=== PATIENT | male | born 1975 | race Caucasian/White ===

== ENCOUNTER 2019-11-27 00:18 | Emergency (ER) | payer OTHER ==
[~2019-11-27] VITALS: Ht 185.4 cm; Wt 113.4 kg
[~2019-11-27 00:18] MED LIST: AUGMENTIN 875 M1 TAB PO; METHADONE10 MG PO; SUBOXONE 8 MG-21 TA1 SL; TRAMADOL HCL50 MG PO; TRIMOX500 MG PO; ZOFRAN4 MG PO
[2019-11-27 00:43] LABS: BILIRUBIN Negative (Negative); BLOOD Negative (Negative); CLARITY Cloudy (Clear); COLOR Dark Yellow (Yellow); GLUCOSE Negative (Negative); KETONE Trace (Negative); LEUKO ESTERASE Negative (Negative); NITRITE Negative (Negative); SPECIFIC GRAVITY >= 1.030 (1.001-1.030)
[2019-11-27 00:48] LABS: BASO # 0.1 10*3/uL (0.0-0.1); BASO % 0.5 % (0.0-1.0); EOS # 0.4 10*3/uL (0.0-0.4); EOS % 3.1 % (1.0-4.0); HEMATOCRIT 49.9 % (42.0-52.0); LYMPH # 4.7 10*3/uL (1.3-4.4); MEAN CORPUSCULAR HGB 28.4 pg (27.0-31.0); MEAN CORPUSCULAR HGB CONC 32.3 g/dl (33.0-37.0); MEAN PLATELET VOLUME 9.5 fl (9.6-12.3); MONO # 0.9 10*3/uL (0.1-1.0); MONO % 7.5 % (3.0-9.0); NEUT # 5.5 10*3/uL (2.3-7.9); NEUT % 47.7 % (47.0-73.0); PLATELET COUNT AUTOMATED 292 10*3/uL (130-400); RED BLOOD COUNT 5.67 10*6/uL (4.50-5.90); RED CELL DISTRI WIDTH 14.5 % (0-14.5); WHITE BLOOD COUNT 11.4 10*3/uL (4.8-10.8)
[2019-11-27 00:52] LABS: URINE AMPHETAMINES < 1000 (1000ng/ml); URINE BARBITURATES < 200 (200ng/ml); URINE BENZODIAZEPINES > 200 (200ng/ml); URINE CANNABINOIDS (THC) > 50 (50ng/ml); URINE COCAINE < 300 (300ng/ml); URINE METHADONE < 300 (300ng/ml); URINE OPIATES < 300 (300ng/ml)
[2019-11-27 00:53] LABS: URINE PHENCYCLIDINE < 25 (25ng/ml)
[2019-11-27 00:54] LABS: CALCIUM OXALATE CRYSTALS 1+; RBC 0-2 rbc/hpf (0-2)
[2019-11-27 01:04] LABS: ACETAMINOPHEN (TYLENOL) < 5.0 ug/ml (10-30); ALBUMIN 3.7 gm/dl (3.1-4.5); ALKALINE PHOSPHATASE 122 U/L (45-117); BUN 12 mg/dl (7-24); CHLORIDE 108 mmol/L (98-107); ETHYL ALCOHOL < 3.0 mg/dl (<3); SGOT/AST 72 IU/L (3-35); SGPT/ALT 436 U/L (12-78); SODIUM 143 mmol/L (136-145); TOTAL PROTEIN 7.6 gm/dL (6.4-8.2)
== END 2019-11-27 07:56 | disposition home or self-care (01) ==
LOC: ED 00:18
PROVIDERS: Nurse Practitioner Family
DX: T40.601A Poisoning by unspecified narcotics, accidental (unintentional), initial encounter (principal); T40.691A Poisoning by other narcotics, accidental (unintentional), initial encounter; S80.01XA Contusion of right knee, initial encounter; F43.21 Adjustment disorder with depressed mood; V89.2XXA Person injured in unspecified motor-vehicle accident, traffic, initial encounter; Y93.89 Activity, other specified; Y92.89 Other specified places as the place of occurrence of the external cause; Y99.8 Other external cause status

== ENCOUNTER → 2020-10-28 | Outpatient (CLI) | payer OTHER | END | disposition home or self-care (01) | LOC: COVID19 15:59 | PROVIDERS: ATTEND Family Medicine | DX: Z11.52 Encounter for screening for COVID-19 (principal) ==

== ENCOUNTER 2020-12-26 01:07 | Emergency (ER) | payer OTHER ==
[~2020-12-26] VITALS: Ht 185.4 cm; Wt 113.4 kg
[2020-12-26 01:59] LABS: BASO % 0.2 % (0.0-1.0); EOS # 0.1 10*3/uL (0.0-0.4); EOS % 0.5 % (1.0-4.0); HEMATOCRIT 47.5 % (42.0-52.0); LYMPH # 1.9 10*3/uL (1.3-4.4); LYMPH % 14.8 % (27.0-41.0); MEAN CELL VOLUME 85.1 fl (80.0-94.0); MEAN CORPUSCULAR HGB 29.2 pg (27.0-31.0); MEAN CORPUSCULAR HGB CONC 34.3 g/dl (33.0-37.0); MEAN PLATELET VOLUME 9.4 fl (9.6-12.3); MONO # 0.8 10*3/uL (0.1-1.0); MONO % 6.3 % (3.0-9.0); NEUT # 10.1 10*3/uL (2.3-7.9); NEUT % 77.9 % (47.0-73.0); PLATELET COUNT AUTOMATED 389 10*3/uL (130-400); RED BLOOD COUNT 5.58 10*6/uL (4.50-5.90); RED CELL DISTRI WIDTH 12.7 % (0-14.5)
[2020-12-26 02:15] LABS: ALBUMIN 4.4 gm/dl (3.1-4.5); ALKALINE PHOSPHATASE 80 U/L (45-117); BUN 10 mg/dl (7-24); CHLORIDE 105 mmol/L (98-107); CREATININE 1.09 mg/dL (0.70-1.30); POTASSIUM 3.4 mmol/L (3.5-5.1); SGOT/AST 17 IU/L (3-35); SGPT/ALT 31 U/L (12-78); SODIUM 137 mmol/L (136-145); TOTAL PROTEIN 8.8 gm/dL (6.4-8.2)
[2020-12-26] MEDS ORDERED: DECADRON6 M1 PO (02:54)
[2020-12-26] MEDS ORDERED: PROAIR HFA8.5 GM INH (02:54)
[2020-12-26] MEDS ORDERED: AVPAK AZITHROM250 MG PO (02:54)
[2020-12-26] MEDS ORDERED: LIDOCAINE PAIN1 EACH TD (02:55)
[2020-12-26] MEDS ORDERED: Motrin,Rufen800 MG PO (02:55)
[2020-12-26] MEDS ORDERED: XANAX1 MG PO (02:56)
[2020-12-26] MEDS ORDERED: BACTRIM 400-801 EACH PO (02:56)
[2020-12-26] MEDS ORDERED: NEURONTIN300 MG PO (02:56)
[2020-12-26] MEDS ORDERED: OXYCODONE5 M1 PO (02:58)
[2020-12-26] MEDS ORDERED: QUETIAPINE FUM100 M2 PO (02:58)
[2020-12-26] MEDS ORDERED: AMITRIPTYLINE H75 MG PO (02:58)
[2020-12-26] MEDS ORDERED: FLUOXETINE40 MG PO (02:58)
== END 2020-12-26 02:51 | disposition left against medical advice (07) ==
LOC: ED 01:07
PROVIDERS: Emergency Medicine
DX: R10.9 Unspecified abdominal pain (principal); R11.10 Vomiting, unspecified; Z88.6 Allergy status to analgesic agent; Z79.899 Other long term (current) drug therapy